=== PATIENT | male | born 1950 ===

== ENCOUNTER 2017-09-18 08:30 | Day surgery (SDC) | payer MEDICARE, MEDICAID ==
--- NOTE | 2017-09-18 10:03 | CP.SDSHP ---
Same Day Surgery H & P - History Proposed Procedure: US guided FNA of left parotid mass Pre-Op Diagnosis: Left parotid mass - Allergies Allergies: Allergies No Known Allergies Allergy (Verified 09/18/17 09:04) - Physical Exam Vital Signs: Vital Signs 09/18/17 08:41 Temperature 97.4 F L Pulse Rate 96 H Respiratory 20 Rate Blood Pressure 124/83 O2 Sat by Pulse 98 Oximetry Mental Status: Alert & Oriented x3 - Impression Impression: Pt with a 1.7 cm left parotid mass. Plan US guided FNA. Pt. Evaluated Today:Candidate for Anesthesia & Procedure: No - Date & Time Date: 09/18/17 Time: 09:35 Short Stay Discharge - Short Stay Discharge Admitting Diagnosis/Reason for Visit: DX:[id number]/PAROTID MASS Disposition: HOME/ ROUTINE
--- NOTE | 2017-09-18 10:04 | PCM.SURG1 ---
Surgeon's Initial Post Op Note - Surgeon's Notes Surgeon: Celio Griffin MD Manager Private: NONE Type of Anesthesia: Local Pre-Operative Diagnosis: Left parotid mass Operative Findings: US showed a 1.7 cm left parotid mass Post-Operative Diagnosis: Left parotid mass Operation Performed: US guided FNA. Four 25 g FNA specimen removed. Specimen/Specimens Removed: 25 g FNA X 4 Estimated Blood Loss: EBL {In ML}: 1 Blood Products Given: N/A Drains Used: No Drains Post-Op Condition: Good Date of Surgery/Procedure: 09/18/17 Time of Surgery/Procedure: 10:00
[2017-09-18 10:12] VITALS: BP 115/77; PULSE 77; RESP 15; TEMP 98; O2SAT 77
--- NOTE | 2017-09-19 13:42 | US ---
PROCEDURE: DATE OF PROCEDURE: 09/18/2017 PROCEDURE: 1. Ultrasound-guided FNA of a left parotid mass, CPT 38369 2. Ultrasound guidance for procedure, CPT 37712 Medications: 3cc 1 percent lidocaine HISTORY: left parotid mass TECHNIQUE: Following informed consent, the left parotid area was marked. Procedure time out was called and the parotid area was prepped and draped in the usual sterile manner. A limited ultrasound was performed of the left parotid which shows a 1.8 centimeter heterogenous parotid mass. Ultrasound-guided FNA was performed. Under ultrasound guidance, a 25 gauge needle was advanced into the mass. A FNA sample was placed on slides and sent for routine pathology. Four passes were made into the nodule. A post biopsy ultrasound showed no hematoma. IMPRESSION: Ultrasound-guided FNA left parotid mass.
== END 2017-09-18 10:18 | disposition home or self-care (01) ==
LOC: C.SPRAD 08:30
PROVIDERS: ATTEND Radiology Vascular & Interventional Radiology
DX: D11.0 Benign neoplasm of parotid gland (principal)